=== PATIENT | male | born 1975 | race Caucasian/White ===

== ENCOUNTER 2021-11-07 20:11 | Emergency (ER) | payer BC ==
[2021-11-07 20:19] VITALS: BP 117/71
--- NOTE | 2021-11-07 21:03 | XRAY Report ---
PROCEDURE: Foot 3 View RT INDICATIONS: fell/injur R foot, c/o pain TECHNIQUE: 3 views of the foot were acquired. COMPARISON: None. FINDINGS: Bones: No fractures or dislocations. No suspicious bony lesions. Soft tissues: No tibiotalar joint effusion. Achilles tendon appears normal. IMPRESSION: No osseous trauma found, no evidence of ligamentous disruption. Reviewed by: Jose Burton MD on 11/07/2021 9:02 PM [facility] Approved by: Jose Burton MD on 11/07/2021 9:02 PM PST Station ID: [id number]
--- NOTE | 2021-11-07 21:05 | ED Physician Documentation ---
History of Present Illness - Stated complaint Stated Complaint: RIGHT FOOT PX - Chief complaint Chief Complaint: Trauma Ext - Additonal information Additional information: 52-year-old male presents emergency department for evaluation of acute right lateral foot pain. [place] rolled the ankle. Since then he has had tenderness in the lateral portion of the foot when ambulating. No history of previous injury. No other associated injuries. Review of Systems Constitutional: reports: Reviewed and negative Ears: reports: Reviewed and negative Nose: reports: Reviewed and negative Cardiac: reports: Reviewed and negative Respiratory: reports: Reviewed and negative GI: reports: Reviewed and negative : reports: Reviewed and negative Musculoskeletal: reports: Extremity pain PD PAST MEDICAL HISTORY - Present Medications Home Medications: Ambulatory Orders Medication Instructions Recorded Confirmed No Known Home Medications 11/07/21 11/07/21 - Allergies Allergies/Adverse Reactions: Allergies Allergy/AdvReac Type Severity Reaction Status Date / Time No Known Drug Allergies Allergy Verified 11/07/21 20:19 PD ED PE EXPANDED - Extremities Extremities: Right foot (Tenderness on dorsum of the right lateral foot without deformity or ecchymosis. 2+ DP pulse. Full range of motion of the ankle in all planes. Normal inversion and eversion of the foot. No tenderness at the base of the fifth metatarsal. Patient is able to bear nearly full weight. Mildly antalgi) Results - Vitals Vitals: Vital Signs - 24 hr 11/07/21 20:18 Temperature 36.7 C Heart Rate 58 L Respiratory 16 Rate Blood Pressure 117/71 O2 Saturation 100 Oxygen O2 Source Room air - Rads (name of study) right foot Radiology: Final report received (No osseous trauma found) PD MEDICAL DECISION MAKING - ED course Complexity details: d/w patient ED course: 46-year-old male here with acute right foot pain after rolling his ankle while jumping off a log. Mild tenderness on the dorsum of the foot but no pain elicited at the base of the fifth metatarsal. X-rays without acute pathology. Patient is able to bear nearly full weight and has a mildly antalgic gait. Patient will be recommended to take Tylenol and ibuprofen. If pain and gait not markedly improved after 7 to 10 days consider reimaging to rule out occult fracture. Though today no obvious findings to suggest a Schwartz or pseudo Schwartz. Departure - Departure Disposition: 01 Home, Self Care Clinical Impression: Contusion of right foot Qualifiers: Encounter type: initial encounter Qualified Code(s): S90.31XA - Contusion of right foot, initial encounter Condition: Stable Record reviewed to determine appropriate education?: Yes Instructions: ED Contusion Lower Extr Ch Comments: Carson the x-ray of your right foot does not show an obvious broken bone. I suspect that you have a contusion or bruise. I would like you to take Tylenol or ibuprofen [id number] for discomfort. If your pain and ability to walk is not markedly improved by 7 to 10 days the foot should be merna-rayed to rule out any occult fracture.
== END 2021-11-07 21:18 | disposition home or self-care (01) ==
LOC: ED 20:11
DX: S90.31XA Contusion of right foot, initial encounter (principal); X50.1XXA Overexertion from prolonged static or awkward postures, initial encounter; Y93.39 Activity, other involving climbing, rappelling and jumping off; Y92.832 Beach as the place of occurrence of the external cause
CPT/HCPCS: 99281; 99283